=== PATIENT | male | born 1995 | race African-American/Black ===

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

== ENCOUNTER 2017-01-05 11:45 | Emergency (ER) | payer OTHER ==
[~2017-01-05] VITALS: Ht 170.2 cm; Wt 74.5 kg
[2017-01-05] MEDS ORDERED: ONDANSETRON 4MG/2ML VIAL (J2405) IV ONE (12:00)
[2017-01-05] MEDS ORDERED: MORPHINE 4 MG/ML 1ML SYRINGE IV ONE (12:00)
--- NOTE | 2017-01-05 12:41 | REP ---
CT Head without contrast HISTORY: Trauma COMPARISON: 12/12/2016 There is no intraparenchymal hemorrhage, acute infarct, mass or midline shift. The ventricular system is normal in appearance. There is no extra cerebral collection. There is no fracture. The visualized sinuses are clear. IMPRESSION: There is no intracranial lesion. Signed by Teodoro Leiva MD 01/05/2017 12:32 P
--- NOTE | 2017-01-05 12:44 | REP ---
CT cervical spine without contrast HISTORY: Trauma COMPARISON: None There is no acute fracture or subluxation. There is no disc bulge or herniation. The spinal canal and neural foramina are patent. The intervertebral discs and vertebral bodies are normal in height. There is loss of the normal lordotic curve. IMPRESSION: There is no acute fracture or subluxation. Signed by Teodoro Leiva MD 01/05/2017 12:35 P
--- NOTE | 2017-01-05 12:54 | REP ---
Clinical: Trauma . Comparison: None . Technique: PA and lateral. Findings: The mediastinum and cardiac silhouette are normal. The lung lala are clear and without acute consolidation, effusion, or pneumothorax. The skeletal structures are intact and normal. Impression: 1. No acute cardiopulmonary process. Signed by Deangelo Perales MD 01/05/2017 12:46 P
--- NOTE | 2017-01-05 12:55 | REP ---
Clinical: Trauma. Technique: AP view of the pelvis with neutral and frog lateral views of the right hip. Findings: Osseous structures and joint spaces are intact and normal. No acute fracture dislocation. Surrounding soft tissues are unremarkable. No subcutaneous emphysema or radiodense foreign body. Impression: Normal pelvis and right hip radiographs. Signed by Deangelo Perales MD 01/05/2017 12:46 P
[2017-01-05] MEDS ORDERED: ISOVUE-370 76% 100ML VIAL (Q9967) As Ordered ONE (13:13)
--- NOTE | 2017-01-05 13:49 | REP ---
Clinical: Trauma. Technique: Axial contrast enhanced images from the lung bases to the pubic symphysis using 100 ml Isovue 370 intravenous contrast material with coronal and sagittal re-formations. Findings: Lung bases are clear. Visualized heart and pericardium normal. No evidence for solid organ injury. Liver, spleen, pancreas, gallbladder, bilateral adrenal glands and kidneys are normal. Incidental 1.2 cm right renal cyst. The enteric system is without obstruction or acute inflammatory process. Normal terminal ileum and appendix identified in the right lower quadrant. Pelvis demonstrates collapsed normal bladder and age appropriate prostate/seminal vesicles. No pelvic fluid or ascites. No free air. No adenopathy. Abdominal aorta and vasculature is normal and intact. Incidental note is made of a retroaortic left renal vein. Musculoskeletal structures are intact without evidence for trauma/injury. Impression: 1. No evidence for acute abdominopelvic pathology or trauma/injury. 2. Incidental 1.2 cm right renal cyst. Signed by Deangelo Perales MD 01/05/2017 01:41 P
--- NOTE | 2017-01-05 13:52 | REP ---
Clinical: Trauma. Technique: Axial contrast enhanced images from the thoracic inlet to the upper abdomen using 100 ml Isovue 370 intravenous contrast material with coronal and sagittal re-formations. Findings: The bilateral lung lala are well-aerated, symmetric and clear. No consolidation/contusion, effusion or pneumothorax. Tracheobronchial tree is patent. The mediastinum is normal. Pulmonary vasculature, thoracic aorta, and heart and pericardium are unremarkable. No adenopathy. Musculoskeletal structures are intact without evidence for trauma/injury. Impression: Normal chest CT. No acute mediastinal or pleuroparenchymal pathology or trauma/injury. Signed by Deangelo Perales MD 01/05/2017 01:43 P
[2017-01-05 14:39] VITALS: BP 129/59
== END 2017-01-05 14:42 | disposition home or self-care (01) ==
LOC: M ED 11:45 → EDBD 11:45 → M ED 14:42
DX: S30.1XXA Contusion of abdominal wall, initial encounter (principal); S20.219A Contusion of unspecified front wall of thorax, initial encounter; V09.20XA Pedestrian injured in traffic accident involving unspecified motor vehicles, initial encounter; Y92.410 Unspecified street and highway as the place of occurrence of the external cause; Y93.9 Activity, unspecified; Y99.9 Unspecified external cause status; N28.1 Cyst of kidney, acquired
CPT/HCPCS: 70450; 71020; 71260; 72125; 73502; 74177; 96374; 96375; 99284; J2405; Q9967

== ENCOUNTER → 2017-01-19 | Outpatient (REF) | payer OTHER ==
[~2017-01-19] MED LIST: PERC5TAB12 PO
== END ==
LOC: M SMT 13:12
PROVIDERS: ATTEND Nurse Practitioner Women's Health
DX: R31.9 Hematuria, unspecified (principal)

== ENCOUNTER 2017-01-22 19:51 | Emergency (ER) | payer OTHER ==
[~2017-01-22] VITALS: Ht 170.2 cm; Wt 77.7 kg
[2017-01-22] MEDS ORDERED: ONDANSETRON 4MG/2ML VIAL (J2405) IV ONE (20:45)
[2017-01-22] MEDS ORDERED: NS 1,000 ML IV ONE (20:45)
[2017-01-22] MEDS ORDERED: MORPHINE 4 MG/ML 1ML SYRINGE IV PRN (20:45)
[2017-01-22 21:05] LABS: BASO % 0.4 % (0.0-1.0); EOS # 0.2 10^3/uL (0.0-0.50); EOS % 2.1 % (0.0-3.0); IMMATURE GRANULOCYTE % 0.1 % (0-0); LYMPH # 1.9 10^3/uL (1.5-6.5); LYMPH % 24.7 % (24.0-44.0); MEAN CORPUSCULAR HEMOGLOBIN 30.1 pg (27.0-33.0); MONO # 0.8 10^3/uL (0.0-0.8); MONO % 10.1 % (0.0-5.0); NEUTROPHILS # 4.7 10^3/uL (1.8-7.7); NEUTROPHILS % 62.6 % (36.0-66.0); PLATELET COUNT, AUTOMATED 250 10^3/uL (150-450); RED CELL DISTRIBUTION WIDTH 11.8 % (11.5-14.5); WHITE BLOOD COUNT 7.5 10^3/uL (4.0-10.0)
[2017-01-22 21:17] LABS: INR 0.98
[2017-01-22 21:37] LABS: ALBUMIN 4.1 GM/DL (3.2-5.2); ALBUMIN/GLOBULIN RATIO 0.98 (1.00-1.93); ALKALINE PHOSPHATASE 76 U/L (45-117); ALT/SGPT 125 U/L (12-78); ANION GAP 6 MEQ/L (8-16); AST/SGOT 43 U/L (7-37); BILIRUBIN,DIRECT 0.2 MG/DL (0.0-0.2); BILIRUBIN,TOTAL 0.8 MG/DL (0.2-1.0); BLOOD UREA NITROGEN 11 MG/DL (7-18); CALCIUM LEVEL 8.6 MG/DL (8.5-10.1); CARBON DIOXIDE LEVEL 28 MEQ/L (21-32); CHLORIDE LEVEL 108 MEQ/L (98-107); CREATININE FOR GFR 1.03 MG/DL (0.70-1.30); GLUCOSE, FASTING 80 MG/DL (70-105); POTASSIUM SERUM 3.7 MEQ/L (3.5-5.1); SODIUM LEVEL 142 MEQ/L (136-145); TOTAL PROTEIN 8.3 GM/DL (6.4-8.2)
[2017-01-22] MEDS ORDERED: ISOVUE-370 76% 100ML VIAL (Q9967) As Ordered ONE (21:39)
--- NOTE | 2017-01-22 22:10 | REPUSA ---
CT of the abdomen and pelvis with contrast Clinical statement: Pain. Technique: Multiple axial CT images were obtained from the base of the lungs through the floor of the pelvis utilizing 5 mm axial slices after administration of oral and nonionic intravenous contrast. C oronal and sagittal reconstructions were also obtained. Comparison: 01/05/2017. Findings: Chest: The visualized lung bases are clear. Abdomen: The liver, spleen, pancreas, kidneys, gallbladder, and adrenal glands are unremarkable. The aorta is within normal limits. There is no evidence of abdominal lymphadenopathy or ascites. Pelvis: The bowel is unremarkable, with no obstructive or inflammatory changes. The appendix is mary grace l. The urinary bladder is within normal limits. The other pelvic structures appear grossly intact. Th ere is no evidence of pelvic lymphadenopathy or ascites. Bones: There are no suspicious osseous abnormalities seen. Impression: Unremarkable CT examination of the abdomen and pelvis.
[2017-01-22] MEDS ORDERED: KETOROLAC 30 MG/ML VIAL (J1885) IV ONE (22:45)
[2017-01-22 23:09] LABS: CONTROL LINE MONO INT CTR LINE PRESENT
[2017-01-22] MEDS ORDERED: PERC5TAB12 PO (23:28)
[2017-01-22 23:47] VITALS: BP 127/63
== END 2017-01-22 23:49 | disposition home or self-care (01) ==
LOC: M ED 20:33
DX: R94.5 Abnormal results of liver function studies (principal); R31.9 Hematuria, unspecified
CPT/HCPCS: 74177; 80048; 80076; 81001; 83605; 83690; 85025; 85610; 85730; 86308; 86850; 86900; 86901; 87086; 96361; 96374; 96375; 99284; J1885; J2405; Q9967

== ENCOUNTER → 2017-02-09 | Outpatient (CLI) | payer OTHER | LOC: M SMT 09:35 | DX: R31.9 Hematuria, unspecified (principal); R10.9 Unspecified abdominal pain; T14.90XA Injury, unspecified, initial encounter; Y92.89 Other specified places as the place of occurrence of the external cause; N28.1 Cyst of kidney, acquired | CPT/HCPCS: 76770 ==

== ENCOUNTER 2017-02-26 15:11 | Inpatient (IN) | payer OTHER ==
[2017-02-26 16:04] LABS: BASO % 0.2 % (0.0-1.0); EOS # 0.1 10^3/uL (0.0-0.50); EOS % 1.5 % (0.0-3.0); HEMATOCRIT 40.9 % (42.0-52.0); HEMOGLOBIN 14.3 g/dl (14.0-18.0); IMMATURE GRANULOCYTE % 0.2 % (0-0); LYMPH # 1.8 10^3/uL (1.5-6.5); LYMPH % 27.4 % (24.0-44.0); MEAN CORPUSCULAR VOLUME 85.9 fl (80.0-96.0); MONO # 0.6 10^3/uL (0.0-0.8); MONO % 8.7 % (0.0-5.0); NEUTROPHILS # 4.1 10^3/uL (1.8-7.7); PLATELET COUNT, AUTOMATED 228 10^3/uL (150-450); RED BLOOD COUNT 4.76 10^6/uL (4.30-6.10); RED CELL DISTRIBUTION WIDTH 11.9 % (11.5-14.5); WHITE BLOOD COUNT 6.6 10^3/uL (4.0-10.0)
[2017-02-26 16:07] LABS: KETONE, URINE AUTO RFX NEGATIVE (NEGATIVE); LEUKOCYTE ESTERASE UR AUTO RFX NEGATIVE (NEGATIVE); NITRITE, URINE AUTO RFX NEGATIVE (NEGATIVE); RBC, URINE AUTO RFX 1 /HPF (0-3); SQUAM EPITHELIAL CELL UR AURFX 0 /HPF (0-6); WBC, URINE AUTO RFX 0 /HPF (0-3)
[2017-02-26] MEDS ORDERED: ONDANSETRON 4MG/2ML VIAL (J2405) As Ordered (16:25)
[2017-02-26] MEDS: ONDANSETRON 4MG/2ML VIAL (J2405) IV ×2 (16:33→21:31)
[2017-02-26 16:38] LABS: INR 0.92; PROTHROMBIN TIME 12.4 SECONDS (12.4-14.5)
[2017-02-26 16:39] LABS: ALBUMIN 4.2 GM/DL (3.2-5.2); ALBUMIN/GLOBULIN RATIO 1.31 (1.00-1.93); ALKALINE PHOSPHATASE 64 U/L (45-117); ALT/SGPT 84 U/L (12-78); AMYLASE 144 U/L (25-115); ANION GAP 10 MEQ/L (8-16); AST/SGOT 38 U/L (7-37); BILIRUBIN,DIRECT 0.2 MG/DL (0.0-0.2); BILIRUBIN,TOTAL 0.8 MG/DL (0.2-1.0); BLOOD UREA NITROGEN 12 MG/DL (7-18); CALCIUM LEVEL 8.8 MG/DL (8.5-10.1); CARBON DIOXIDE LEVEL 26 MEQ/L (21-32); CHLORIDE LEVEL 105 MEQ/L (98-107); CREATININE FOR GFR 0.88 MG/DL (0.70-1.30); GLUCOSE, FASTING 91 MG/DL (70-105); LIPASE 897 U/L (73-393); PARTIAL THROMBOPLASTIN TIME 32.6 SECONDS (26.8-37.9); SODIUM LEVEL 141 MEQ/L (136-145); TOTAL PROTEIN 7.4 GM/DL (6.4-8.2)
[2017-02-26] MEDS: NS 1,000 ML IV (16:49)
[2017-02-26] MEDS ORDERED: ISOVUE-370 76% 100ML VIAL (Q9967) As Ordered (16:51)
[2017-02-26] MEDS: LR 1,000 ML IV (19:15)
[2017-02-26] MEDS: PANTOPRAZOLE SODIUM 40 MG in D5W 50 ML IV (19:45)
[2017-02-26 19:56] LABS: CPK CREATINE PHOSPHOKINASE 189 U/L (39-308); ETHYL ALCOHOL (ETHANOL) < 0.003 % (0.000-0.010); MB/CK RELATIVE INDEX 0.52 (< OR =4); SALICYLATE LEVEL < 1.7 MG/DL (5.0-30.0); THYROXINE (T4) 8.8 UG/DL (6.0-11.6); TROPONIN I < 0.02 NG/ML (< 0.10)
[2017-02-26 20:01] LABS: FREE THYROXINE INDEX 2.6 % (1.4-3.8); T UPTAKE 30 % (33-40)
[2017-02-26 20:05] LABS: ACETAMINOPHEN LEVEL < 2.0 UG/ML (10.0-30.0)
[2017-02-26] MEDS: MORPHINE 2 MG/ML 1ML SYRINGE IV (21:30)
[2017-02-26 22:11] LABS: HEMATOCRIT 40.2 % (42.0-52.0); HEMOGLOBIN 13.9 g/dl (14.0-18.0)
[2017-02-27] MEDS: LR 1,000 ML IV ×5 (00:22→22:16)
[2017-02-27] MEDS: PANTOPRAZOLE SODIUM 40 MG in D5W 50 ML IV ×5 (00:23→22:17)
[2017-02-27 01:41] LABS: CPK CREATINE PHOSPHOKINASE 159 U/L (39-308); MB/CK RELATIVE INDEX 0.62 (< OR =4); TROPONIN I < 0.02 NG/ML (< 0.10)
[2017-02-27 04:39] LABS: HEMATOCRIT 39.5 % (42.0-52.0); HEMOGLOBIN 13.6 g/dl (14.0-18.0); MEAN CORPUSCULAR HEMOGLOBIN 29.7 pg (27.0-33.0); MEAN CORPUSCULAR HGB CONC 34.4 g/dl (32.0-36.5); MEAN CORPUSCULAR VOLUME 86.2 fl (80.0-96.0); PLATELET COUNT, AUTOMATED 232 10^3/uL (150-450); RED BLOOD COUNT 4.58 10^6/uL (4.30-6.10); RED CELL DISTRIBUTION WIDTH 11.9 % (11.5-14.5); WHITE BLOOD COUNT 7.6 10^3/uL (4.0-10.0)
[2017-02-27 04:59] LABS: ALBUMIN 3.7 GM/DL (3.2-5.2); ALBUMIN/GLOBULIN RATIO 1.16 (1.00-1.93); ALKALINE PHOSPHATASE 59 U/L (45-117); ALT/SGPT 80 U/L (12-78); ANION GAP 6 MEQ/L (8-16); AST/SGOT 36 U/L (7-37); BILIRUBIN,TOTAL 1.3 MG/DL (0.2-1.0); BLOOD UREA NITROGEN 10 MG/DL (7-18); CALCIUM LEVEL 8.6 MG/DL (8.5-10.1); CARBON DIOXIDE LEVEL 29 MEQ/L (21-32); CHLORIDE LEVEL 106 MEQ/L (98-107); GLUCOSE, FASTING 80 MG/DL (70-105); LIPASE 167 U/L (73-393); MAGNESIUM LEVEL 1.9 MG/DL (1.4-2.0); POTASSIUM SERUM 3.9 MEQ/L (3.5-5.1); SODIUM LEVEL 141 MEQ/L (136-145); TOTAL PROTEIN 6.9 GM/DL (6.4-8.2)
[2017-02-27 11:20] LABS: HEMATOCRIT 42.1 % (42.0-52.0); HEMOGLOBIN 14.6 g/dl (14.0-18.0)
[2017-02-27 13:25] LABS: REASON FOR REVIEW ANEMIA / RBC MORPH; SLIDE REVIEW Report; SOURCE PERIPHERAL SMEAR
[2017-02-28] MEDS: LR 1,000 ML IV ×3 (03:11→11:47)
[2017-02-28] MEDS: PANTOPRAZOLE SODIUM 40 MG in D5W 50 ML IV ×3 (03:12→11:47)
[2017-02-28 05:22] LABS: HEMATOCRIT 38.6 % (42.0-52.0); HEMOGLOBIN 13.3 g/dl (14.0-18.0); MEAN CORPUSCULAR HGB CONC 34.5 g/dl (32.0-36.5); MEAN CORPUSCULAR VOLUME 86.9 fl (80.0-96.0); PLATELET COUNT, AUTOMATED 220 10^3/uL (150-450); RED BLOOD COUNT 4.44 10^6/uL (4.30-6.10); RED CELL DISTRIBUTION WIDTH 11.7 % (11.5-14.5); WHITE BLOOD COUNT 6.5 10^3/uL (4.0-10.0)
[2017-02-28 05:47] LABS: ALBUMIN 3.4 GM/DL (3.2-5.2); ALKALINE PHOSPHATASE 58 U/L (45-117); ALT/SGPT 87 U/L (12-78); ANION GAP 7 MEQ/L (8-16); AST/SGOT 43 U/L (7-37); BLOOD UREA NITROGEN 13 MG/DL (7-18); CALCIUM LEVEL 8.8 MG/DL (8.5-10.1); CARBON DIOXIDE LEVEL 31 MEQ/L (21-32); CHLORIDE LEVEL 105 MEQ/L (98-107); CREATININE FOR GFR 0.94 MG/DL (0.70-1.30); GLUCOSE, FASTING 87 MG/DL (70-105); LIPASE 198 U/L (73-393); POTASSIUM SERUM 3.9 MEQ/L (3.5-5.1); SODIUM LEVEL 143 MEQ/L (136-145); TOTAL PROTEIN 6.8 GM/DL (6.4-8.2)
[2017-02-28] MEDS ORDERED: LIDOCAINE 2% INJ 100 MG/5 ML SYRINGE As Ordered (07:35)
[2017-02-28] MEDS ORDERED: PROPOFOL 200 MG/20 ML VIAL As Ordered (07:36)
[2017-02-28 11:59] LABS: HEPATITIS B SURFACE ANTIGEN NEGATIVE (NEGATIVE)
[2017-02-28 13:29] LABS: HEPATITIS B CORE ANTIBODY IGM NEGATIVE (NEGATIVE); HIV 1&2 SCREEN CENTAUR NEGATIVE (NEGATIVE)
[2017-02-28 13:30] LABS: HEPATITIS A ANTIBODY IGM NEGATIVE (NEGATIVE)
[2017-03-05 00:11] LABS: HEPATITIS E IgM ANTIBODY Negative (Negative)
[2017-03-05 00:11] LABS: HEPATITIS E IgG ANTIBODY Negative (Negative)
== END 2017-02-28 17:30 | disposition home or self-care (01) | DRG 392 ==
LOC: M ED 15:11 → M ED INP 19:06 → M PCU 21:39
PROC: 0DB68ZX Excision of Stomach, Via Natural or Artificial Opening Endoscopic, Diagnostic (ICD-10-PCS; principal; 2017-02-28 08:00)
DX: K29.00 Acute gastritis without bleeding (principal); R44.3 Hallucinations, unspecified; R04.2 Hemoptysis; R78.89 Finding of other specified substances, not normally found in blood; I51.9 Heart disease, unspecified; R91.8 Other nonspecific abnormal finding of lung field

== ENCOUNTER 2022-02-23 13:30 | Emergency (ER) | payer OTHER ==
[~2022-02-23] VITALS: Ht 170.2 cm; Wt 96.4 kg
[~2022-02-23 13:30] MED LIST changes: +PANT40TA29 PO
[2022-02-23] MEDS ORDERED: SUCR1SS (14:02)
[2022-02-23 17:29] LABS: LIPASE 55 U/L (12-53)
[2022-02-23 17:31] LABS: BASO % 0.3 % (0.0-1.0); BILIRUBIN,DIRECT 0.6 MG/DL (<0.4); EOS % 0.4 % (0.0-3.0); HEMATOCRIT 47.4 % (42.0-52.0); HEMOGLOBIN 16.3 g/dl (13.5-17.5); LYMPH # 2.6 10^3/uL (1.5-5.0); LYMPH % 25.4 % (24.0-44.0); MEAN CORPUSCULAR HEMOGLOBIN 29.7 pg (27.0-33.0); MEAN CORPUSCULAR HGB CONC 34.4 g/dl (32.0-36.5); MEAN CORPUSCULAR VOLUME 86.5 fl (80.0-96.0); MONO # 0.7 10^3/uL (0.0-0.8); MONO % 7.1 % (2.0-8.0); NEUTROPHILS # 6.7 10^3/uL (1.5-8.5); NEUTROPHILS % 66.5 % (36.0-66.0); PLATELET COUNT, AUTOMATED 318 10^3/uL (150-450); RED BLOOD COUNT 5.48 10^6/uL (4.30-6.10); WHITE BLOOD COUNT 10.1 10^3/uL (4.0-10.0)
[2022-02-23 17:45] LABS: ALBUMIN 4.5 G/DL (3.2-5.2); ALKALINE PHOSPHATASE 75 U/L (46-116); ALT/SGPT 31 U/L (7.0-40); AST/SGOT 23 U/L (<34); BILIRUBIN,TOTAL 1.9 MG/DL (0.3-1.2); BLOOD UREA NITROGEN 11 MG/DL (9-23); CALCIUM LEVEL 9.6 MG/DL (8.5-10.1); CARBON DIOXIDE LEVEL 26 MMOL/L (20-31); CHLORIDE LEVEL 102 MMOL/L (98-107); CREATININE FOR GFR 1.11 MG/DL (0.70-1.30); GLOMERULAR FILTRATION RATE > 60.0 (>60); GLUCOSE, FASTING 87 MG/DL (60-100); POTASSIUM SERUM 4.3 MMOL/L (3.5-5.1); SODIUM LEVEL 137 MMOL/L (136-145); TOTAL PROTEIN 8.5 G/DL (5.7-8.2)
[2022-02-23] MEDS ORDERED: PANTOPRAZOLE 40MG VIAL IV ONE (18:25)
[2022-02-23] MEDS ORDERED: NS 1,000 ML IV ONE (18:25)
[2022-02-23] MEDS: GASTROGRAFIN SOLUTION 30ML PO SCH ×2 (18:50→19:20)
[2022-02-23] MEDS ORDERED: ISOVUE-370 76% 100ML VIAL As Ordered ONE (20:37)
[2022-02-23] MEDS ORDERED: OMEP40CA4 PO (21:32)
[2022-02-23 21:44] VITALS: BP 136/64
== END 2022-02-23 21:51 | disposition home or self-care (01) ==
LOC: M ED 13:30
DX: K29.00 Acute gastritis without bleeding (principal); K42.9 Umbilical hernia without obstruction or gangrene; F41.9 Anxiety disorder, unspecified; F17.200 Nicotine dependence, unspecified, uncomplicated; Z87.442 Personal history of urinary calculi; Z87.820 Personal history of traumatic brain injury; Z79.810 Long term (current) use of selective estrogen receptor modulators (SERMs); Z79.1 Long term (current) use of non-steroidal anti-inflammatories (NSAID)
CPT/HCPCS: 74177; 80048; 80076; 83690; 85025; 86850; 86900; 86901; 96361; 96374; 99284; C9113

== ENCOUNTER 2022-07-02 12:38 | Day surgery (SDC) | payer OTHER ==
[~2022-07-02] VITALS: Ht 170.2 cm; Wt 94.8 kg
[~2022-07-02 12:38] MED LIST changes: +NS 1,000 ML IV ONE; +OMEP40CA4 PO; +SUCR1SS
[2022-07-02] MEDS ORDERED: fentaNYL 100 MCG/2 ML INJECTION As Ordered ONE (13:24)
[2022-07-02] MEDS ORDERED: propofoL 200 MG/20 ML VIAL As Ordered ONE (13:37)
[2022-07-02] MEDS ORDERED: LIDOCAINE 2% 100MG/5ML SDV (FOR ANES.) As Ordered ONE (13:38)
[2022-07-02 14:10] VITALS: BP 114/67
== END 2022-07-02 14:18 | disposition home or self-care (01) ==
LOC: M OPP 12:38
PROVIDERS: ATTEND Internal Medicine Gastroenterology
DX: K92.0 Hematemesis (principal); K20.0 Eosinophilic esophagitis; K20.80 Other esophagitis without bleeding; K31.89 Other diseases of stomach and duodenum; Z87.891 Personal history of nicotine dependence; Z79.899 Other long term (current) drug therapy
CPT/HCPCS: 43239; 88305; J3010

== ENCOUNTER 2024-11-12 09:00 | Emergency (ER) | payer OTHER ==
[~2024-11-12] VITALS: Ht 170.2 cm; Wt 91.8 kg
[~2024-11-12 09:00] MED LIST changes: -NS 1,000 ML IV ONE
[2024-11-12 10:58] LABS: BASO # 0.0 10^3/uL (0.0-0.2); BASO % 0.2 % (0.0-1.0); EOS # 0.0 10^3/uL (0.0-0.5); EOS % 0.1 % (0.0-3.0); LYMPH # 1.1 10^3/uL (1.5-5.0); LYMPH % 7.1 % (24.0-44.0); MONO # 0.8 10^3/uL (0.0-0.8); MONO % 5.0 % (2.0-8.0); NEUTROPHILS # 13.2 10^3/uL (1.5-8.5); NEUTROPHILS % 87.2 % (36.0-66.0); PLATELET COUNT, AUTOMATED 333 10^3/uL (150-450)
[2024-11-12 11:13] LABS: ALT/SGPT 66.0 U/L (7.0-40); AST/SGOT 47.0 U/L (<34); CALCIUM LEVEL 9.2 MG/DL (8.5-10.1); CARBON DIOXIDE LEVEL 24.0 MMOL/L (20-31); CHLORIDE LEVEL 103.0 MMOL/L (98-107); CREATININE FOR GFR 1.21 MG/DL (0.70-1.30); GLOMERULAR FILTRATION RATE 84.2 (>60); POTASSIUM SERUM 4.1 MMOL/L (3.5-5.1); SODIUM LEVEL 139.0 MMOL/L (136-145)
[2024-11-12] MEDS ORDERED: ISOVUE-370 76% 100 ML VIAL As Ordered ONE (11:29)
[2024-11-12] MEDS: PANTOPRAZOLE 40MG VIAL IV ONE (11:29)
[2024-11-12 14:03] VITALS: BP 105/71; TEMP 98.1; O2SAT 100
== END 2024-11-12 14:06 | disposition home or self-care (01) ==
LOC: EDBD 09:00 → M ED 09:00
DX: R55 Syncope and collapse (principal); K92.0 Hematemesis; F17.200 Nicotine dependence, unspecified, uncomplicated
CPT/HCPCS: 74177; 80047; 80048; 80076; 83690; 85025; 93005; 93041; 96374; 99285; J2470; Q9967

== ENCOUNTER 2024-11-26 02:34 | Emergency (ER) | payer OTHER ==
[~2024-11-26] VITALS: Ht 170.2 cm; Wt 91.4 kg
[2024-11-26 02:36] VITALS: TEMP 98.2
[2024-11-26 04:42] LABS: BASO # 0.0 10^3/uL (0.0-0.2); BASO % 0.3 % (0.0-1.0); EOS # 0.2 10^3/uL (0.0-0.5); EOS % 2.5 % (0.0-3.0); LYMPH # 2.5 10^3/uL (1.5-5.0); LYMPH % 28.9 % (24.0-44.0); MONO # 0.6 10^3/uL (0.0-0.8); MONO % 7.3 % (2.0-8.0); NEUTROPHILS # 5.3 10^3/uL (1.5-8.5); NEUTROPHILS % 60.8 % (36.0-66.0); PLATELET COUNT, AUTOMATED 288 10^3/uL (150-450)
[2024-11-26 05:07] LABS: ALT/SGPT 50 U/L (7.0-40); AST/SGOT 33 U/L (<34); CALCIUM LEVEL 9.2 MG/DL (8.5-10.1); CARBON DIOXIDE LEVEL 26 MMOL/L (20-31); CHLORIDE LEVEL 106 MMOL/L (98-107); CREATININE FOR GFR 1.04 MG/DL (0.70-1.30); GLOMERULAR FILTRATION RATE > 90.0 (>60); POTASSIUM SERUM 4.3 MMOL/L (3.5-5.1); SODIUM LEVEL 141 MMOL/L (136-145)
[2024-11-26] MEDS: GASTROGRAFIN SOLUTION 30ML PO SCH (06:58)
[2024-11-26] MEDS ORDERED: ISOVUE-370 76% 100 ML VIAL As Ordered ONE (08:22)
[2024-11-26] MEDS: SUCRALFATE SUSP 1GM/10ML UD PO ONE (08:35)
[2024-11-26] MEDS: FAMOTIDINE IV BAG 20 MG in IV 1 EA IV ONE (08:35)
[2024-11-26] MEDS: PANTOPRAZOLE 40MG VIAL IV ONE (08:35)
[2024-11-26] MEDS ORDERED: PANT-23 PO (08:53)
[2024-11-26] MEDS ORDERED: HOME MED LIST COMPLETE! XX SCH (08:55)
[2024-11-26] MEDS: MAGIC MOUTHWASH 5 ML ORAL SYRINGE SS ONE (08:59)
[2024-11-26 10:30] VITALS: BP 117/70; O2SAT 97
[2024-11-26] MEDS ORDERED: CARA1TAB6 PO (10:31)
[2024-11-26] MEDS ORDERED: FAMO20TA PO (10:31)
[2024-11-26] MEDS ORDERED: HYOS0.1297 PO (10:31)
== END 2024-11-26 10:51 | disposition home or self-care (01) ==
LOC: M ED 02:34
DX: R10.13 Epigastric pain (principal); K63.89 Other specified diseases of intestine; J98.11 Atelectasis; N40.0 Benign prostatic hyperplasia without lower urinary tract symptoms; K42.9 Umbilical hernia without obstruction or gangrene; Z87.442 Personal history of urinary calculi; Z79.899 Other long term (current) drug therapy
CPT/HCPCS: 74177; 80048; 80076; 83690; 85025; 96365; 96366; 96375; 99284; J1308; J2470; Q9963; Q9967

== ENCOUNTER 2024-12-17 10:45 | Day surgery (SDC) | payer OTHER ==
[~2024-12-17] VITALS: Ht 177.8 cm; Wt 93.9 kg
[~2024-12-17 10:45] MED LIST changes: +CARA1TAB6 PO; +FAMO20TA PO; +HYOS0.1297 PO; +PANT-23 PO
[2024-12-17] MEDS ORDERED: LIDOCAINE 2% 100 MG/5 ML SDV (FOR ANES.) As Ordered ONE (12:20)
[2024-12-17 13:04] VITALS: BP 120/56; TEMP 97.5; O2SAT 95
== END 2024-12-17 13:14 | disposition home or self-care (01) ==
LOC: M OPP 10:45
PROVIDERS: ATTEND Internal Medicine Gastroenterology
DX: R93.3 Abnormal findings on diagnostic imaging of other parts of digestive tract (principal); K20.90 Esophagitis, unspecified without bleeding; R10.13 Epigastric pain; Z79.899 Other long term (current) drug therapy
CPT/HCPCS: 43239; 45330; 88305; J3010

== ENCOUNTER 2025-01-01 07:01 | Day surgery (SDC) | payer OTHER ==
[~2025-01-01] VITALS: Ht 170.2 cm; Wt 91.5 kg
[2025-01-01] MEDS ORDERED: LIDOCAINE 2% 100 MG/5 ML SDV (FOR ANES.) As Ordered ONE (08:36)
[2025-01-01 09:23] VITALS: TEMP 95.9
[2025-01-01 09:39] VITALS: BP 108/59; O2SAT 98
== END 2025-01-01 09:48 | disposition home or self-care (01) ==
LOC: M OPP 07:01
PROVIDERS: ATTEND Internal Medicine Gastroenterology
DX: R93.3 Abnormal findings on diagnostic imaging of other parts of digestive tract (principal); K57.30 Diverticulosis of large intestine without perforation or abscess without bleeding; Z79.899 Other long term (current) drug therapy

== ENCOUNTER 2025-01-07 08:57 | Emergency (ER) | payer OTHER ==
[~2025-01-07] VITALS: Ht 170.2 cm; Wt 90.0 kg
[2025-01-07 09:51] LABS: BASO # 0.0 10^3/uL (0.0-0.2); BASO % 0.4 % (0.0-1.0); EOS # 0.1 10^3/uL (0.0-0.5); EOS % 1.0 % (0.0-3.0); LYMPH # 2.0 10^3/uL (1.5-5.0); LYMPH % 26.0 % (24.0-44.0); MONO # 0.5 10^3/uL (0.0-0.8); MONO % 7.0 % (2.0-8.0); NEUTROPHILS # 5.0 10^3/uL (1.5-8.5); NEUTROPHILS % 65.3 % (36.0-66.0); PLATELET COUNT, AUTOMATED 272 10^3/uL (150-450)
[2025-01-07] MEDS: ACETAMINOPHEN *IV* 1,000 MG in IV 1 EA IV ONE (10:08)
[2025-01-07 10:19] LABS: ALT/SGPT 42 U/L (7.0-40); AST/SGOT 27 U/L (<34); CALCIUM LEVEL 8.7 MG/DL (8.5-10.1); CARBON DIOXIDE LEVEL 25 MMOL/L (20-31); CHLORIDE LEVEL 105 MMOL/L (98-107); CREATININE FOR GFR 0.92 MG/DL (0.70-1.30); GLOMERULAR FILTRATION RATE > 90.0 (>60); POTASSIUM SERUM 4.1 MMOL/L (3.5-5.1); SODIUM LEVEL 138 MMOL/L (136-145)
[2025-01-07] MEDS ORDERED: ISOVUE-370 76% 100 ML VIAL As Ordered ONE (10:43)
[2025-01-07 11:30] VITALS: BP 118/56; TEMP 97.8; O2SAT 99
== END 2025-01-07 12:16 | disposition home or self-care (01) ==
LOC: EDBD 08:57 → M ED 08:57
DX: R10.9 Unspecified abdominal pain (principal); K92.0 Hematemesis; K76.0 Fatty (change of) liver, not elsewhere classified; R16.0 Hepatomegaly, not elsewhere classified; Z79.899 Other long term (current) drug therapy
CPT/HCPCS: 74177; 80047; 80048; 80076; 83690; 85025; 93041; 96365; 99284; J0134; Q9967

== ENCOUNTER 2025-01-17 07:59 | Day surgery (SDC) | payer OTHER ==
[~2025-01-17] VITALS: Ht 170.2 cm; Wt 91.2 kg
[2025-01-17] MEDS ORDERED: OMEP40CA4 PO (09:01)
[2025-01-17] MEDS ORDERED: LIDOCAINE 2% 100 MG/5 ML SDV (FOR ANES.) As Ordered ONE (10:33)
[2025-01-17 10:58] VITALS: TEMP 97.5
[2025-01-17 11:15] VITALS: BP 121/73; O2SAT 96
== END 2025-01-17 11:21 | disposition home or self-care (01) ==
LOC: M OPP 07:59
PROVIDERS: ATTEND Internal Medicine Gastroenterology
DX: K64.8 Other hemorrhoids (principal); R93.3 Abnormal findings on diagnostic imaging of other parts of digestive tract; K21.00 Gastro-esophageal reflux disease with esophagitis, without bleeding; K92.0 Hematemesis; Z79.899 Other long term (current) drug therapy
CPT/HCPCS: 43239; 45378; 88305; J3010